=== PATIENT | female | born 1980 | race Two or more races ===

== ENCOUNTER 2024-04-30 20:57 | Emergency (ER) | payer OTHER ==
[~2024-04-30] VITALS: Ht 152.4 cm; Wt 86.3 kg
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
[2024-04-30] MEDS: ACETAMINOPHEN 325 MG TAB PO ONE (21:53)
[2024-04-30 21:54] VITALS: BP 143/62; TEMP 98.8
[2024-04-30 21:55] VITALS: PULSE 73; RESP 16; O2SAT 94
== END 2024-04-30 22:51 | disposition home or self-care (01) ==
LOC: ER 20:57 → EDBD 20:57 → ER 22:51
DX: S39.012A Strain of muscle, fascia and tendon of lower back, initial encounter (principal); V43.52XA Car driver injured in collision with other type car in traffic accident, initial encounter; Y93.I9 Activity, other involving external motion; Y92.488 Other paved roadways as the place of occurrence of the external cause; Y99.8 Other external cause status
CPT/HCPCS: 72040; 72100